=== PATIENT | female | born 1970 | race Caucasian/White ===

== ENCOUNTER 2017-01-29 17:22 | Emergency (ER) | payer OTHER ==
[~2017-01-29] VITALS: Ht 157.5 cm; Wt 54.0 kg
[2017-01-29 19:11] LABS: CHLORIDE 105 mEq/L (99-109); POTASSIUM 3.8 mEq/L (3.7-5.4); SODIUM 141 mEq/L (136-147)
[2017-01-29 19:13] LABS: GLUCOSE 99 mg/dL (70-99)
[2017-01-29 19:14] LABS: ANION GAP 11 MEQ/L (2-14)
[2017-01-29 19:17] LABS: GFR ESTIMATE (CALCULATED) > 59 mL/min/
[2017-01-29 19:18] LABS: UREA NITROGEN (BUN) 11 mg/dL (9-23)
[2017-01-29 20:28] LABS: ADD MIUA? NO; BILIRUBIN NEGATIVE; BLOOD NEGATIVE; COLOR STRAW ((YELLOW)); GLUCOSE (STRIP) NEGATIVE; KETONES NEGATIVE; LEUKOCYTES NEGATIVE; NITRITE NEGATIVE; PROTEIN (STRIP) NEGATIVE; SPECIFIC GRAVITY 1.003 (1.000-1.030); UROBILINOGEN 0.2 MG/DL (0.2-1.0)
[2017-01-29] MEDS ORDERED: PREDNISONE5 M1 PO (20:29)
[2017-01-29] MEDS ORDERED: TRAMADOL HCL50 MG PO (20:29)
[2017-01-29 20:44] VITALS: BP 109/79
== END 2017-01-29 20:45 | disposition home or self-care (01) ==
LOC: EME 17:22
PROVIDERS: Physician Assistant
DX: M79.7 Fibromyalgia (principal); M32.9 Systemic lupus erythematosus, unspecified; M50.20 Other cervical disc displacement, unspecified cervical region; F17.200 Nicotine dependence, unspecified, uncomplicated
CPT/HCPCS: 80048; 81003; 99281; 99284; J7512